=== PATIENT | male | born 1955 ===

== ENCOUNTER 2016-10-26 07:27 | Inpatient (IN) | payer MEDICARE, BC ==
[2016-10-26 07:40] VITALS: BMI 28.1
--- NOTE | 2016-10-26 08:11 | C.PDOC ---
History Of Present Illness 61 y/o male presents to ED with complaints of alcohol. Pt discharged from [facility] 20 minutes ago. Pt reports suicidal thoughts. Denies chest pain, SOB, vomiting or any other complaints. History of diabetes, high cholesterol and psychiatric history. Time Seen by Provider: 10/26/16 07:44 Chief Complaint (Nursing): Substance Abuse History Per: Patient History/Exam Limitations: no limitations Onset/Duration Of Symptoms: Days Current Symptoms Are (Timing): Still Present Severity: Mild Associated Symptoms: Suicidal Thoughts Involuntary Hold By: None Recent travel outside of the [place]: No Past Medical History Reviewed: Historical Data, Nursing Documentation, Vital Signs Vital Signs: Last Vital Signs Temp 98.6 F 10/26/16 07:40 Pulse 84 10/26/16 07:40 Resp 18 10/26/16 07:40 BP 123/83 10/26/16 07:40 Pulse Ox 98 10/26/16 09:56 - Medical History PMH: Anxiety, Bipolar Disorder, Depression, Diabetes, Gall Bladder Disease (s/p Lap [place]), HTN, Hypercholesterolemia Surgical History: Cholecystectomy - [facility] Procedures INDIVID PSYCHOTHERAP NEC (06/05/14) LAPAROSCOPIC CHOLECYSTECTOMY (09/19/13) OTHER GROUP THERAPY (06/05/14) Family History: States: Unknown Family Hx - Social History Hx Tobacco Use: No Hx Alcohol Use: Yes Hx Substance Use: No - Immunization History Hx Tetanus Toxoid Vaccination: No Hx Influenza Vaccination: Yes Hx Pneumococcal Vaccination: No Review Of Systems Except As Marked, All Systems Reviewed And Found Negative. Cardiovascular: Negative for: Chest Pain Respiratory: Negative for: Shortness of Breath Gastrointestinal: Negative for: Vomiting Psych: Positive for: Suicidal ideation Physical Exam - Physical Exam Appears: Non-toxic, No Acute Distress Skin: Warm, Dry, No Rash Head: Atraumatic, Normacephalic Neck: Normal, Normal ROM Chest: Symmetrical Cardiovascular: Rhythm Regular, No Murmur Respiratory: Normal Breath Sounds, No Rales, No Rhonchi, No Wheezing Gastrointestinal/Abdominal: Normal Exam, Soft, No Tenderness Extremity: Bilateral: Atraumatic Neurological/Psych: Oriented x3, Normal Speech ED Course And Treatment - Laboratory Results Result Diagrams: 10/26/16 08:21 10/26/16 08:21 Lab Interpretation: Normal O2 Sat by Pulse Oximetry: 98 (room air) Pulse Ox Interpretation: Normal Progress Note: Case discussed and patient evaluated by crisis evaluation who request admission to Dr Cochran Reassessment Condition: Unchanged - Physician Consult Information Physician Contacted: Fatoumata Cochran Outcome Of Conversation: admit Disposition Discussed With : Fatoumata Cochran Doctor Will See Patient In The: Hospital - Disposition Disposition Time: 10:00 Condition: STABLE - POA Present On Arrival: None - Clinical Impression Clinical Impression: Drug abuse, Depression - PA / MAILROOM CLERK / Resident Statement MD/DO has reviewed & agrees with the documentation as recorded. - Scribe Statement The provider has reviewed the documentation as recorded by the Scribgregorio Hebert All medical record entries made by the Taz were at my direction and personally dictated by me. I have reviewed the chart and agree that the record accurately reflects my personal performance of the history, physical exam, medical decision making, and the department course for this patient. I have also personally directed, reviewed, and agree with the discharge instructions and disposition. Decision To Admit - Pt Status Changed To: Hospital Disposition Of: Inpatient - Admit Certification Admit to Inpatient:: After my assessment, the patient will require hospitalization for at least two midnights. This is because of the severity of symptoms shown, intensity of services needed, and/or the medical risk in this patient being treated as an outpatient. - InPatient: Physician Admission Certification: I certify that this patient requires 2 or more midnights of care for the following reason:: Depressive Disorder. Alcohol Abuse - . Bed Request Type: Psychiatry Admitting Physician: Fatoumata Cochran Patient Diagnosis: Drug abuse, Depression
[2016-10-26 08:20] LABS: URINE BILIRUBIN NEGATIVE (NEGATIVE); URINE BLOOD NEGATIVE (NEGATIVE); URINE CLARITY Clear (Clear); URINE COLOR Yellow (YELLOW); URINE GLUCOSE (UA) 3+ mg/dL (Normal); URINE LEUKOCYTE ESTERASE NEG Leu/uL (Negative); URINE NITRATE NEGATIVE (NEGATIVE); URINE PROTEIN NEGATIVE (NEGATIVE); URINE UROBILINOGEN NORMAL mg/dL (0.2-1.0)
[2016-10-26 08:33] LABS: BASO % 0.6 % (0.0-2.0); EOS # 0.1 K/uL (0.0-0.7); EOS % 1.6 % (0.0-4.0); HEMOGLOBIN 14.6 g/dL (12.0-18.0); LYMPH # 2.2 K/uL (1.0-4.3); LYMPH % 33.2 % (20.0-40.0); MEAN CELL VOLUME 86.7 fL (80.0-94.0); MEAN CORPUSCULAR HEMOGLOBIN 28.9 pg (27.0-31.0); MEAN CORPUSCULAR HGB CONC 33.4 g/dL (33.0-37.0); MEAN PLATELET VOLUME 8.3 fL (7.2-11.7); MONO # 0.4 K/uL (0.0-0.8); MONO % 6.6 % (0.0-10.0); NEUT # 3.8 K/uL (1.8-7.0); RBC 5.05 Mil/uL (4.40-5.90); RED CELL DISTRIBUTION WIDTH 15.6 % (11.5-14.5); WHITE BLOOD COUNT 6.6 K/uL (4.8-10.8)
[2016-10-26 08:34] LABS: BARBITURATES, UR NEGATIVE (NEGATIVE)
[2016-10-26 08:38] LABS: OPIATES, UR NEGATIVE (NEGATIVE)
[2016-10-26 08:39] LABS: ALBUMIN 4.3 g/dL (3.5-5.0)
[2016-10-26 08:39] LABS: PHENCYCLIDINE, UR NEGATIVE (NEGATIVE)
[2016-10-26 08:43] LABS: ALB/GLOB RATIO 1.4 (1.0-2.1); ALT/SGPT 62 U/L (21-72); AST/SGOT 30 U/L (17-59); BLOOD UREA NITROGEN 12 mg/dL (9-20); CALCIUM 8.6 mg/dl (8.6-10.4); GFR AFRICAN-AMERICAN > 60; GFR NON-AFRICAN AMERICAN > 60
[2016-10-26 09:01] LABS: BENZODIAZEPINES, UR POSITIVE (NEGATIVE)
[2016-10-26 10:22] VITALS: O2SAT 97
--- NOTE | 2016-10-26 11:06 | PCM.PSYCH ---
Initial Psychiatric Evaluation - Initial Psychiatric Evaluation Type of Admission: Voluntary Legal Status: Capacity Chief Complaint (in patient's own words): 'I am going through alcohol withdrawal and feeling suicidal' History of Present Illness and Precipitating Events: Patient is a 61 year-old male, who is on disability and lives alone, came to the ER seeking help for alcohol withdrawal and suicidal ideations. Patient states that he had consumed 3 cases of 6-pack 12 oz. beers yesterday, and woke up at 2 am to go to the hospital. He states that he went to the [facility] first, then came to ER at [facility]. He reports of tremors, diaphoresis, nausea, and diarrhea. Patient also reports of Ativan abuse and states that he used it last a few days ago. Patient states that he was feeling depressed and had suicidal ideations, but no plans to harm himself. He reports of previous suicide attempt by taking 2 bottles of OTC sleeping pills 7 years ago. Patient denies any hallucinations. Patient denies any other substance abuse. Patients states that he started abusing alcohol, and prescription drugs after 02/15. He states that he drinks 3 cases of 6-pack 12 oz. beers daily, and abuses Ativan and Gabapentin to calm him down after drinking. He states that he attended AA meetings for 3 years, but did not find them helpful so he stopped attending. Patient states that he used Antabuse for few years which helped him remain sober. Patient denies any other substance abuse. Patient states that he has a history of multiple past psychiatric hospitalizations but because of his poor memory, he is not able to provide any details. He does report of having been hospitalized after his previous suicide attempt 7 years ago, and his last hospitalization was 1 year ago. Patient reports past psychiatric history of generalized anxiety disorder, depression, agoraphobia, and PTSD. 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 Past Psychiatric History - Past Psychiatric History Previous Treatment History: Inpatient Pertinent Medical Hx (Current Medical&Sleep Prob, Allergies): Allergies Allergy/AdvReac Type Severity Reaction Status Date / Time No Known Allergies Allergy Verified 10/26/16 07:35 Gabapentin [Neurontin] 800 mg PO BID #0 cap 02/26/15 QUEtiapine [SEROquel] 50 mg PO HS #0 tab 02/26/15 Insulin Aspart [Novolog] 15 unit SC TID 10/26/16 Insulin Detemir [Levemir] 50 units SC HS 10/26/16 Review of Systems - Review of Systems Systems not reviewed;Unavailable: Intoxicated All systems: reviewed and no additional remarkable complaints except - Constitutional Constitutional: Sweats - Neurological Neurological: Lack of Coordination, Tremor - Psychiatric Psychiatric: Anxiety, Confusion, Hopelessness, Irritability, Memory Loss, Suicidal Ideation Mental Status Examination - Personal Presentation Personal Presentation: Looks stated age - Affect Affect: Constricted, Blunted - Motor Activity Motor Activity: Calm - Reliability in Providing Information Reliability in Providing Information: Poor, due to cognitve impairment - Speech Speech: Relevant - Mood Mood: Depressed - Formal Thought Process Formal Thought Process: Loosening of associations - Cognitive Functions Orientation: Person, Place, Situation, Time Sensorium: Alert Attention/Concentration: Attentive Judgement: Imparied, as evidence by: Poor judgement, Imparied, as evidence by: Lack of insight into illness - Risk Risk: Suicidal, Withdrawal, Diminished functioning - Strength & Assets Inventory Strength & Assets Inventory: Cooperative - Limitations Limitations: Living alone DSM 5 DX - DSM 5 DSM 5 Diagnosis: Major depressive disorder recurrent severe without psychotic features Alcohol use disorder severe Alcohol withdrawal Sedative/hypnotic use severe PTSD - Recommended/Plan of Treatment Treatment Recommendations and Plan of Treatment: Major depressive disorder recurrent severe without psychotic features CBT Psychoeducation Supportive therapy, group therapy, individual therapy Seroquel 50 mg by mouth QHS Neurontin 100 mg po TID Trazodone 50 mg by mouth daily at bedtime Alcohol use disorder severe CBT Psychoeducation Supportive therapy, individual therapy Use [place] for abstinence Alcohol withdrawal CBT Psychoeducation Supportive therapy, individual therapy Ativan taper Sedative/hypnotic use severe CBT Psychoeducation Supportive therapy, individual therapy Use [place] for abstinence PTSD CBT & Psychoeducation - Smoking Cessation Smoking Cessation Initiated: No
--- NOTE | 2016-10-26 11:39 | PCM.BM ---
Treatment Plan Problems - Problems identified on initial assessmt Anxiety related to Benzo abuse Date Initiated: 10/26/16 Time Initiated: 11:38 Assessment reference: NA Status: Active Priority: 1 Treatment assets and liabiliti Patient Assests: cooperative Patient Liabilities: substance abuse - Milieu Protocol Maintain good personal hygiene: daily Encourage regular showers, daily Remind patient to perform daily oral care Maintain personal safety: every shift Educate patient to report safety concerns to staff, every shift Monitor environment for contraband/sharps Medication safety: Monitor for expected outcome, potential side effects: every shift, Assess barriers to learning: every shift, Assess readiness for medication education: every shift
[2016-10-26] MEDS: (Novolog) Insulin Aspart, Recombinant 100 u/ml 10 ml vial SC SCH (17:53)
[2016-10-26] MEDS: Insulin Detemir 100 units/ml Vial (Levemir) SC SCH (21:15)
[2016-10-27] MEDS: (Novolog) Insulin Aspart, Recombinant 100 u/ml 10 ml vial SC SCH ×3 (08:20→16:39)
--- NOTE | 2016-10-27 11:36 | PCM.PYCHPN ---
Psychiatric Progress Note - Psychiatric Progress Note Patient seen today, length of contact: 15 min Patient Chief Complaint: 'I am feeling better but there are still shakes' Problems Identified/Issues Discussed: Patient is seen, evaluated, and case discussed with staff. Patient reports depressed mood and feelings of hopelessness and helplessness. He continued to have withdrawal symptoms including tremors, nausea, diarrhoea, anxiety and headaches. His both hands are shaking and he cant hold anything. Patient appears disorganized, unkempt, and is malodorous. He remains isolated and withdrawn. Patient denies any suicidal ideations. Patient is compliant with all medications, and reports no side effects. Symptoms are improving but needs more time to stabilize. Support and psychoeducation given. Medication Change: Yes (ativan taper) Medical Record Reviewed: Yes Mental Status Examination - Cognitive Function Orientation: Person, Place, Situation, Time Memory: Impaired Attention: Poor Concentration: Poor Association: Loose Fund of Knowledge: Poor - Mood Mood: Depressed - Affect Affect: Constricted, Blunted - Speech Speech: Appropriate - Formal Thought Process Formal Thought Process: Loosening of associations - Suicidal Ideation Suicidal Ideation: No - Homicidal Ideation Homicidal Ideation: No Goal/Treatment Plan - Goal/Treatment Plan Need for Continued Stay: Remain at risks for inpatient hospitalization, Discharge may exacerbated symptoms, Severe functional impairment Progress Toward Problem(s) and Goals/Treatment Plan: Major depressive disorder recurrent severe without psychotic features CBT Psychoeducation Supportive therapy, group therapy, individual therapy Seroquel 50 mg by mouth QHS Neurontin 100 mg po TID Trazodone 50 mg by mouth daily at bedtime Alcohol use disorder severe CBT Psychoeducation Supportive therapy, individual therapy Use [place] for abstinence Alcohol withdrawal CBT Psychoeducation Supportive therapy, individual therapy Ativan taper Sedative/hypnotic use severe CBT Psychoeducation Supportive therapy, individual therapy Use [place] for abstinence PTSD CBT & Psychoeducation - Smoking Cessation Smoking Cessation Initiated: No
[2016-10-27] MEDS: Insulin Detemir 100 units/ml Vial (Levemir) SC SCH (21:08)
[2016-10-28] MEDS: (Novolog) Insulin Aspart, Recombinant 100 u/ml 10 ml vial SC SCH ×3 (08:35→18:22)
--- NOTE | 2016-10-28 15:02 | PCM.PYCHPN ---
Psychiatric Progress Note - Psychiatric Progress Note Patient seen today, length of contact: 15 min Patient Chief Complaint: 'I still have shakes today' Problems Identified/Issues Discussed: Patient is seen, evaluated, and case discussed with staff. Patient appears disorganized, unkempt, and is malodorous. He remains isolated and withdrawn. Patient reports of feeling better today. He states that his tremors have decreased, but there are still some present. Patient denies any nausea, vomiting, or diarrhea. Patient reports of having some suicidal ideations. Patient is compliant with all medications, and reports no side effects. Symptoms are improving but needs more time to stabilize. Support and psychoeducation given. Medication Change: Yes (start Zoloft) Medical Record Reviewed: Yes Mental Status Examination - Cognitive Function Orientation: Person, Place, Situation, Time Memory: Impaired Concentration: Poor Association: Loose Fund of Knowledge: Poor - Mood Mood: Depressed, Anxious - Affect Affect: Constricted, Blunted - Speech Speech: Appropriate - Formal Thought Process Formal Thought Process: Loosening of associations - Suicidal Ideation Suicidal Ideation: Yes Goal/Treatment Plan - Goal/Treatment Plan Need for Continued Stay: Remain at risks for inpatient hospitalization, Discharge may exacerbated symptoms, Severe functional impairment Progress Toward Problem(s) and Goals/Treatment Plan: Major depressive disorder recurrent severe without psychotic features CBT Psychoeducation Supportive therapy, group therapy, individual therapy Zoloft 50 mg po Daily Seroquel 50 mg by mouth QHS Neurontin 100 mg po TID Trazodone 50 mg by mouth daily at bedtime Alcohol use disorder severe CBT Psychoeducation Supportive therapy, individual therapy Use [place] for abstinence Alcohol withdrawal CBT Psychoeducation Supportive therapy, individual therapy Ativan taper Sedative/hypnotic use severe CBT Psychoeducation Supportive therapy, individual therapy Use [place] for abstinence PTSD CBT & Psychoeducation - Smoking Cessation Smoking Cessation Initiated: No
[2016-10-28] MEDS: Insulin Detemir 100 units/ml Vial (Levemir) SC SCH (21:19)
[2016-10-29] MEDS: (Novolog) Insulin Aspart, Recombinant 100 u/ml 10 ml vial SC SCH ×3 (09:24→16:46)
--- NOTE | 2016-10-29 10:35 | PCM.PYCHPN ---
Psychiatric Progress Note - Psychiatric Progress Note Patient seen today, length of contact: 15 min Patient Chief Complaint: 'I still have shakes today' Problems Identified/Issues Discussed: Patient is seen, evaluated, and case discussed with staff. Patient reports of feeling better today. He states that his tremors have decreased, but there are still some present. Patient denies any nausea, vomiting , or diarrhea. Patient appears disorganized, unkempt, and is malodorous. He remains isolated and withdrawn. Patient reports of having some suicidal ideations. Patient is compliant with all medications, and reports no side effects. Symptoms are improving but needs more time to stabilize. Support and psychoeducation given. Medication Change: Yes (increase neurontin) Medical Record Reviewed: Yes Mental Status Examination - Cognitive Function Orientation: Person, Place, Situation, Time Memory: Impaired Concentration: Poor Association: Loose Fund of Knowledge: Poor - Mood Mood: Depressed, Anxious - Affect Affect: Constricted, Blunted - Speech Speech: Appropriate - Formal Thought Process Formal Thought Process: Loosening of associations - Suicidal Ideation Suicidal Ideation: Yes Goal/Treatment Plan - Goal/Treatment Plan Need for Continued Stay: Remain at risks for inpatient hospitalization, Discharge may exacerbated symptoms, Severe functional impairment Progress Toward Problem(s) and Goals/Treatment Plan: Major depressive disorder recurrent severe without psychotic features CBT Psychoeducation Supportive therapy, group therapy, individual therapy Seroquel 50 mg by mouth QHS Neurontin 300 mg po TID Trazodone 50 mg by mouth daily at bedtime Zoloft 50 mg PO Daily Alcohol use disorder severe CBT Psychoeducation Supportive therapy, individual therapy Use [place] for abstinence Alcohol withdrawal CBT Psychoeducation Supportive therapy, individual therapy Ativan taper Sedative/hypnotic use severe CBT Psychoeducation Supportive therapy, individual therapy Use [place] for abstinence PTSD CBT & Psychoeducation - Smoking Cessation Smoking Cessation Initiated: No
[2016-10-29] MEDS: Insulin Detemir 100 units/ml Vial (Levemir) SC SCH (21:28)
[2016-10-30] MEDS: (Novolog) Insulin Aspart, Recombinant 100 u/ml 10 ml vial SC SCH ×3 (08:24→16:56)
--- NOTE | 2016-10-30 10:39 | PCM.PYCHPN ---
Psychiatric Progress Note - Psychiatric Progress Note Patient seen today, length of contact: 15 min Patient Chief Complaint: 'I still have shakes today' Problems Identified/Issues Discussed: Patient is seen, evaluated, and case discussed with staff. Patient appears more organized, but remained unkempt, and malodorous. Patient reports of feeling better today but remains isolated and withdrawn. He reports improvement in the tremors but there are still present. Patient denies any nausea, vomiting, or diarrhea. Patient reports improvement in the suicidal ideations. Patient is compliant with all medications, and reports no side effects. Symptoms are improving but needs more time to stabilize. Support and psychoeducation given. Medication Change: Yes (increase zoloft) Medical Record Reviewed: Yes Mental Status Examination - Cognitive Function Orientation: Person, Place, Situation, Time Memory: Intact Attention: WNL Concentration: Poor Association: Loose Fund of Knowledge: WNL - Mood Mood: Depressed, Anxious - Affect Affect: Constricted, Blunted - Speech Speech: Appropriate, Soft - Formal Thought Process Formal Thought Process: Loosening of associations - Suicidal Ideation Suicidal Ideation: No - Homicidal Ideation Homicidal Ideation: No Goal/Treatment Plan - Goal/Treatment Plan Need for Continued Stay: Remain at risks for inpatient hospitalization, Discharge may exacerbated symptoms, Severe functional impairment Progress Toward Problem(s) and Goals/Treatment Plan: Major depressive disorder recurrent severe without psychotic features CBT Psychoeducation Supportive therapy, group therapy, individual therapy Zoloft 100 mg po Daily Seroquel 50 mg by mouth QHS Neurontin 300 mg po TID Trazodone 50 mg by mouth daily at bedtime Alcohol use disorder severe CBT Psychoeducation Supportive therapy, individual therapy Use [place] for abstinence Alcohol withdrawal CBT Psychoeducation Supportive therapy, individual therapy Ativan taper Sedative/hypnotic use severe CBT Psychoeducation Supportive therapy, individual therapy Use [place] for abstinence PTSD CBT & Psychoeducation - Smoking Cessation Smoking Cessation Initiated: No
[2016-10-30] MEDS: Insulin Detemir 100 units/ml Vial (Levemir) SC SCH (21:17)
[2016-10-31] MEDS: (Novolog) Insulin Aspart, Recombinant 100 u/ml 10 ml vial SC SCH ×3 (11:39→16:55)
--- NOTE | 2016-10-31 18:49 | PCM.PYCHPN ---
Psychiatric Progress Note - Psychiatric Progress Note Patient seen today, length of contact: 15 min Patient Chief Complaint: 'I am feeling better today' Problems Identified/Issues Discussed: Patient is seen, evaluated, and case discussed with staff. Patient appears more organized than yesterday and started coming out of his room. He reports improvement in the tremors but there are still present. Patient denies any nausea, vomiting, or diarrhea. Patient reports improvement in the suicidal ideations. Patient is compliant with all medications, and reports no side effects. Symptoms are improving but needs more time to stabilize. Support and psychoeducation given. Medication Change: Yes (increase zoloft) Medical Record Reviewed: Yes Mental Status Examination - Cognitive Function Orientation: Person, Place, Situation, Time Memory: Intact Attention: WNL Concentration: Poor Association: WNL Fund of Knowledge: Poor - Mood Mood: Anxious - Affect Affect: Constricted - Speech Speech: Appropriate - Formal Thought Process Formal Thought Process: No Impairment - Suicidal Ideation Suicidal Ideation: No - Homicidal Ideation Homicidal Ideation: No Goal/Treatment Plan - Goal/Treatment Plan Need for Continued Stay: Remain at risks for inpatient hospitalization, Discharge may exacerbated symptoms, Severe functional impairment Progress Toward Problem(s) and Goals/Treatment Plan: Major depressive disorder recurrent severe without psychotic features CBT Psychoeducation Supportive therapy, group therapy, individual therapy Sertraline 200 mg PO Daily Neurontin 300 mg po TID Trazodone 100 mg by mouth daily at bedtime Alcohol use disorder severe CBT Psychoeducation Supportive therapy, individual therapy Use [place] for abstinence Alcohol withdrawal CBT Psychoeducation Supportive therapy, individual therapy Ativan taper completed Sedative/hypnotic use severe CBT Psychoeducation Supportive therapy, individual therapy Use [place] for abstinence PTSD CBT & Psychoeducation - Smoking Cessation Smoking Cessation Initiated: No
[2016-10-31] MEDS: Insulin Detemir 100 units/ml Vial (Levemir) SC SCH (21:19)
[2016-11-01] MEDS: (Novolog) Insulin Aspart, Recombinant 100 u/ml 10 ml vial SC SCH ×3 (08:51→16:04)
--- NOTE | 2016-11-01 12:48 | PCM.PYCHPN ---
Psychiatric Progress Note - Psychiatric Progress Note Patient seen today, length of contact: 15 min Patient Chief Complaint: 'I am feeling better today' Problems Identified/Issues Discussed: Patient is seen, evaluated, and case discussed with staff. Patient reports improvement in his mood and anxiety. He reports improvement in his withdrawal symptoms. Today patient mentioned that he has shakes and tremors for a long period of time but they get worse after drinking. He denies any suicidal ideation or homicidal ideation. Patient is compliant with all medications, and reports no side effects. Symptoms are improving but needs more time to stabilize. Support and psychoeducation given. Medication Change: Yes (increase zoloft) Medical Record Reviewed: Yes Mental Status Examination - Cognitive Function Orientation: Person, Place, Situation, Time Memory: Intact Attention: WNL Concentration: WNL Association: WNL Fund of Knowledge: Poor - Mood Mood: Anxious - Affect Affect: Constricted - Speech Speech: Appropriate - Formal Thought Process Formal Thought Process: No Impairment - Suicidal Ideation Suicidal Ideation: No - Homicidal Ideation Homicidal Ideation: No Goal/Treatment Plan - Goal/Treatment Plan Need for Continued Stay: Remain at risks for inpatient hospitalization, Discharge may exacerbated symptoms, Severe functional impairment Progress Toward Problem(s) and Goals/Treatment Plan: Major depressive disorder recurrent severe without psychotic features CBT Psychoeducation Supportive therapy, group therapy, individual therapy Sertraline 200 mg PO Daily Neurontin 300 mg po TID Trazodone 100 mg by mouth daily at bedtime Alcohol use disorder severe CBT Psychoeducation Supportive therapy, individual therapy Use [place] for abstinence Alcohol withdrawal CBT Psychoeducation Supportive therapy, individual therapy Ativan taper completed Sedative/hypnotic use severe CBT Psychoeducation Supportive therapy, individual therapy Use [place] for abstinence PTSD CBT & Psychoeducation - Smoking Cessation Smoking Cessation Initiated: No
[2016-11-01 15:33] VITALS: BP 117/79; PULSE 87; RESP 18; TEMP 98.7
[2016-11-01] MEDS: Insulin Detemir 100 units/ml Vial (Levemir) SC SCH (21:29)
[2016-11-02] MEDS: (Novolog) Insulin Aspart, Recombinant 100 u/ml 10 ml vial SC SCH (08:19)
--- NOTE | 2016-11-02 09:53 | PCM.PYCHDC ---
Mental Status Examination - Mental Status Examination Orientation: Person, Place, Situation, Time Memory: Intact Mood: Neutral Affect: Constricted Speech: Soft Attention: WNL Concentration: WNL Association: WNL Fund of Knowledge: WNL Formal Thought Process: No Impairment Description of patient's judgement and insight: good, fair Psychotic Thoughts and Behaviors: denies any AVH Suicidal Ideation: No Current Homicidal Ideation?: No Discharge Summary - Discharge Note Reason for Hospitalization: Patient is a 61 year-old male, who is on disability and lives alone, came to the ER seeking help for alcohol withdrawal and suicidal ideations. Patient states that he had consumed 3 cases of 6-pack 12 oz. beers yesterday, and woke up at 2 am to go to the hospital. He states that he went to the [facility] first, then came to ER at [facility]. He reports of tremors, diaphoresis, nausea, and diarrhea. Patient also reports of Ativan abuse and states that he used it last a few days ago. Patient states that he was feeling depressed and had suicidal ideations, but no plans to harm himself. He reports of previous suicide attempt by taking 2 bottles of OTC sleeping pills 7 years ago. Patient denies any hallucinations. Patient denies any other substance abuse. Patients states that he started abusing alcohol, and prescription drugs after 02/15. He states that he drinks 3 cases of 6-pack 12 oz. beers daily, and abuses Ativan and Gabapentin to calm him down after drinking. He states that he attended AA meetings for 3 years, but did not find them helpful so he stopped attending. Patient states that he used Antabuse for few years which helped him remain sober. Patient denies any other substance abuse. Patient states that he has a history of multiple past psychiatric hospitalizations but because of his poor memory, he is not able to provide any details. He does report of having been hospitalized after his previous suicide attempt 7 years ago, and his last hospitalization was 1 year ago. Patient reports past psychiatric history of generalized anxiety disorder, depression, agoraphobia, and PTSD. 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 Reason for request. 2. Findings. 3. Follow-up Summary of Hospital Course include:: 1. Description of specific treatment plan utilized for patients during their course of treatmen. 2. Summarize the time- course for resolution of acute symptoms and/or regressed behaviors. 3. Describe issues identified and worked on during hospitalization. 4. Describe medication utilized. 5. Describe medical problems identified and treated. 6. Reassessment of suicide risk Summary of Hospital Course: During the course of his stay, patient (pt) started progressively improving and he no longer remained irritable, depressed, and suicidal. His mood was improved and he started attending groups and meetings and started socializing. Patient denied any feelings of hopelessness, helplessness, and worthlessness, denied any problem with the sleep or appetite, denied suicidal ideation or homicidal ideation. Pt denied any auditory or visual hallucinations. Some changes were made in his current medications and patient was discharged on following medications. He tolerated these medications very well and denied any side effects. CBT and AL were used. Pt is going to [email or web address] in [place]. - Final Diagnosis (DSM 5) Condition upon Discharge: STABLE DSM 5: Major depressive disorder recurrent severe without psychotic features Alcohol use disorder severe Alcohol withdrawal Sedative/hypnotic use severe PTSD Disposition: HOME/ ROUTINE Follow-up Treatment Plan: Education: Pt was educated and counseled about the risks and benefits of taking and not taking medications. Pt was educated and counseled about the risks of drinking and abusing drugs. Pt was educated and counseled to go to the ER or call 911 if pt develop suicidal ideation or homicidal ideation, worsening of symptoms or severe side effects of the meds. Prescriptions/Medication Reconciliation: Gabapentin [Neurontin] 400 mg PO TID #90 cap Sertraline [Zoloft] 100 mg PO DAILY #60 tab traZODone [Desyrel] 100 mg PO HS #30 tab - Smoking Cessation Smoking Cessation Medication prescribed: No - Antipsychotic Medications Pt discharged on 2 or more routine antipsychotic medications: No
--- NOTE | 2016-11-02 11:25 | PCM.BM ---
<Fatoumata Cochran - Last Filed: 11/02/16 11:24> Treatment Plan Problems - Problems identified on initial assessmt Anxiety related to Benzo abuse Date Initiated: 10/26/16 Time Initiated: 11:38 Assessment reference: NA Status: Active Priority: 1 Treatment assets and liabiliti Patient Assests: cooperative Patient Liabilities: substance abuse - Diagnosis (1) Acute depression Status: Acute Interventions: 11/02/16 11:24 take meds, attend groups (2) Alcohol abuse Status: Acute Interventions: 11/02/16 11:25 take meds, attend groups (3) Alcohol withdrawal Status: Acute Interventions: 11/02/16 11:25 take meds, attend groups - Milieu Protocol Maintain good personal hygiene: daily Encourage regular showers, daily Remind patient to perform daily oral care Maintain personal safety: every shift Educate patient to report safety concerns to staff, every shift Monitor environment for contraband/sharps Medication safety: Monitor for expected outcome, potential side effects: every shift, Assess barriers to learning: every shift, Assess readiness for medication education: every shift Milieu Narrative: Major depressive disorder recurrent severe without psychotic features CBT Psychoeducation Supportive therapy, group therapy, individual therapy Sertraline 200 mg PO Daily Neurontin 300 mg po TID Trazodone 100 mg by mouth daily at bedtime Alcohol use disorder severe CBT Psychoeducation Supportive therapy, individual therapy Use IL for abstinence Alcohol withdrawal CBT Psychoeducation Supportive therapy, individual therapy Ativan taper completed Sedative/hypnotic use severe CBT Psychoeducation Supportive therapy, individual therapy Use IL for abstinence PTSD CBT & Psychoeducation Discharge/Continuing Care - Additional Comments Major depressive disorder recurrent severe without psychotic features CBT Psychoeducation Supportive therapy, group therapy, individual therapy Sertraline 200 mg PO Daily Neurontin 300 mg po TID Trazodone 100 mg by mouth daily at bedtime Alcohol use disorder severe CBT Psychoeducation Supportive therapy, individual therapy Use IL for abstinence Alcohol withdrawal CBT Psychoeducation Supportive therapy, individual therapy Ativan taper completed Sedative/hypnotic use severe CBT Psychoeducation Supportive therapy, individual therapy Use IL for abstinence PTSD CBT & Psychoeducation - Treatment Team Participation Patient/Family/SO Statement: Major depressive disorder recurrent severe without psychotic features CBT Psychoeducation Supportive therapy, group therapy, individual therapy Sertraline 200 mg PO Daily Neurontin 300 mg po TID Trazodone 100 mg by mouth daily at bedtime Alcohol use disorder severe CBT Psychoeducation Supportive therapy, individual therapy Use IL for abstinence Alcohol withdrawal CBT Psychoeducation Supportive therapy, individual therapy Ativan taper completed Sedative/hypnotic use severe CBT Psychoeducation Supportive therapy, individual therapy Use IL for abstinence PTSD CBT & Psychoeducation <GeorgeLisa - Last Filed: 11/02/16 11:39> Treatment assets and liabiliti Patient Assests: ADL independent, cognitively intact Patient Liabilities: medical problems - Milieu Protocol Maintain good personal hygiene: daily Encourage regular showers Maintain personal safety: every shift Educate patient to report safety concerns to staff, every shift Monitor environment for contraband/sharps Medication safety: Monitor for expected outcome, potential side effects: every shift, Assess barriers to learning: every shift, Assess readiness for medication education: every shift
== END 2016-11-02 11:00 | disposition home or self-care (01) | DRG 895 ==
LOC: C.ER 07:27 → C.5E 09:56
PROVIDERS: ADMIT Psychiatry & Neurology Psychiatry; ATTEND Psychiatry & Neurology Psychiatry
PROC: HZ2ZZZZ Detoxification Services for Substance Abuse Treatment (ICD-10-PCS; principal; 2016-10-26)
PROC: HZ52ZZZ Individual Psychotherapy for Substance Abuse Treatment, Cognitive-Behavioral (ICD-10-PCS; 2016-10-26)
PROC: HZ42ZZZ Group Counseling for Substance Abuse Treatment, Cognitive-Behavioral (ICD-10-PCS; 2016-10-26)
PROC: HZ59ZZZ Individual Psychotherapy for Substance Abuse Treatment, Supportive (ICD-10-PCS; 2016-10-26)
PROC: HZ56ZZZ Individual Psychotherapy for Substance Abuse Treatment, Psychoeducation (ICD-10-PCS; 2016-10-26)
PROC: HZ46ZZZ Group Counseling for Substance Abuse Treatment, Psychoeducation (ICD-10-PCS; 2016-10-26)
DX: F10.230 Alcohol dependence with withdrawal, uncomplicated (principal); R45.851 Suicidal ideations; F33.2 Major depressive disorder, recurrent severe without psychotic features; F13.10 Sedative, hypnotic or anxiolytic abuse, uncomplicated; I10 Essential (primary) hypertension; F31.9 Bipolar disorder, unspecified; F41.9 Anxiety disorder, unspecified; E11.9 Type 2 diabetes mellitus without complications; E78.00 Pure hypercholesterolemia, unspecified; Z90.49 Acquired absence of other specified parts of digestive tract; Z79.4 Long term (current) use of insulin; N40.0 Benign prostatic hyperplasia without lower urinary tract symptoms; Y90.0 Blood alcohol level of less than 20 mg/100 ml; F43.10 Post-traumatic stress disorder, unspecified